=== PATIENT | female | born 2000 | race Caucasian/White ===

== ENCOUNTER 2022-08-13 08:10 | Observation (INO) | payer BC ==
[2022-08-13] MEDS ORDERED: Ondansetron PF 4 MG/2 ML Vial ONE ×2 (08:17→08:21)
[2022-08-13] MEDS ORDERED: Morphine 4 MG/ML VIAL ONE ×2 (08:17→08:21)
[2022-08-13] MEDS ORDERED: Ketorolac Tromethamine 30 MG/ML VIAL ONE ×2 (08:29→09:31)
[2022-08-13 08:30] LABS: #Eosinphils 0.1 10x3/uL (0.0-0.5); #Monocytes 0.5 10x3/uL (0.0-1.1); #Neutrophils 2.8 10x3/uL (1.5-8.4); %Basophils 0.7 % (0.0-2.0); %Eosinophils 1.2 % (0.0-6.0); %Lymphocytes 43.3 % (18.0-47.0); %Monocytes 7.8 % (0.0-10.0); %Neutrophils 46.8 % (40.0-75.0); Hemoglobin 12.1 g/dL (12.0-15.5); Mean Corpuscular HGB CONC 34.4 g/dL (32.0-36.0); Mean Corpuscular Hemoglobin 28.9 pg (27.0-33.0); Mean Platelet Volume 10.3 fl (7.4-10.4); Platelet Count 260 10x3/uL (150-450); RBC Distribution Width 12.6 % (11.5-14.5); Red Blood Cell (RBC) Count 4.19 10x6/uL (3.90-5.03); White Blood Cell (WBC) Count 5.9 10x3/uL (3.5-10.5)
[2022-08-13 08:43] LABS: BHCG - Serum Negative (NEGATIVE); Pregs Control Background? CLEAR/WHITE (CLR/WHITE); Pregs Control Bar Appear? YES (CONTROL BAR)
[2022-08-13 08:50] LABS: ALT (SGPT) 11 U/L (8-55); AST (SGOT) 16 U/L (5-34); Albumin 4.8 g/dL (3.5-5.0); Alkaline Phosphatase 62 U/L (40-110); Anion Gap 17 mmol/L (10-20); BUN (Urea Nitrogen) 9 mg/dL (7.0-18.7); Bilirubin, Total 0.5 mg/dL (0.2-1.2); Calc. Creatinine Clearance 0 mL/min (70-130); Calcium 9.8 mg/dL (7.8-10.44); Carbon Dioxide 18 mmol/L (22-29); Chloride 108 mmol/L (98-107); Estimated GFR 96; Globulin 2.9 g/dL (2.4-3.5); Glucose 120 mg/dL (70-105); Lipase 13 U/L (8-78); Potassium 3.4 mmol/L (3.5-5.1); Protein, Total 7.7 g/dL (6.0-8.3); Sodium 140 mmol/L (136-145)
[2022-08-13] MEDS ORDERED: Fentanyl 100 MCG/2 ML VIAL ONE (09:00)
[2022-08-13 10:51] LABS: Bilirubin Neg (Negative); Blood, Urine 250 (Negative); Clarity Clear (Clear); Glucose, Urine (Dipstick) Normal (Negative); Ketone, Urine 15 mg/dL (Negative); Leukocyte Negative (Negative); Nitrite Negative (Negative); Protein, Urine (Dipstick) 15 mg/dl (Neg-Trace); Specific Gravity, Urine 1.015 (1.005-1.030); Urobilinogen Normal mg/dL (Less than 2)
[2022-08-13 11:09] LABS: Bacteria/HPF Rare-Few HPF (None Seen); RBC/HPF 21-50 HPF (0-3); Squamous Epithelial 0-3 HPF (0-3); WBC/HPF 0-3 HPF (0-3)
[2022-08-13] MEDS ORDERED: Ketamine 50 MG/ML (10ML VIAL) ONE (11:17)
[2022-08-13] MEDS ORDERED: HYDROmorphone 0.5 MG/0.5 ML SYRINGE ONE (12:46)
[2022-08-13] MEDS ORDERED: Ondansetron PF 4 MG/2 ML Vial IVP PRN (14:57)
[2022-08-13] MEDS ORDERED: Senokot S 8.6-50 MG TAB PO PRN (14:57)
[2022-08-13] MEDS: Sodium Chloride 0.9% 1,000 ML IV SCH ×2 (15:40→22:11)
[2022-08-13 15:52] VITALS: BMI 23.5
[2022-08-13] MEDS: HYDROcodone/Acetaminophen 7.5/325 mg Tablet PO PRN ×2 (16:06→22:09)
[2022-08-13] MEDS ORDERED: Potassium Chloride 20 MEQ TAB PO SCH (17:30)
[2022-08-13] MEDS: Acetaminophen 325 MG TAB PO PRN (17:50)
[2022-08-13] MEDS: Famotidine 20 MG TAB PO SCH (20:46)
[2022-08-14] MEDS: Acetaminophen 325 MG TAB PO PRN ×3 (00:15→21:27)
[2022-08-14] MEDS: HYDROcodone/Acetaminophen 7.5/325 mg Tablet PO PRN ×3 (04:27→19:50)
[2022-08-14] MEDS: Sodium Chloride 0.9% 1,000 ML IV SCH (04:47)
[2022-08-14 06:22] LABS: Hemoglobin 9.9 g/dL (12.0-15.5); Mean Corpuscular HGB CONC 33.7 g/dL (32.0-36.0); Mean Corpuscular Hemoglobin 29.5 pg (27.0-33.0); Mean Corpuscular Volume 87.5 fl (81.6-98.3); Mean Platelet Volume 10.6 fl (7.4-10.4); Platelet Count 183 10x3/uL (150-450); RBC Distribution Width 12.8 % (11.5-14.5); Red Blood Cell (RBC) Count 3.36 10x6/uL (3.90-5.03); White Blood Cell (WBC) Count 4.6 10x3/uL (3.5-10.5)
[2022-08-14 06:23] LABS: MDiff Complete? YES
[2022-08-14 06:51] LABS: Anion Gap 10 mmol/L (10-20); BUN (Urea Nitrogen) 4 mg/dL (7.0-18.7); Calc. Creatinine Clearance 145 mL/min (70-130); Calcium 8.1 mg/dL (7.8-10.44); Carbon Dioxide 18 mmol/L (22-29); Chloride 116 mmol/L (98-107); Estimated GFR 128; Glucose 82 mg/dL (70-105); Potassium 3.9 mmol/L (3.5-5.1); Sodium 140 mmol/L (136-145)
[2022-08-14 07:40] LABS: Eosinophils 3 % (0-10); Lymphocytes 56 % (21-51); Monocytes 6 % (0-10); Neutrophil 35 % (42-75)
[2022-08-14 07:43] LABS: Platelet Morphology Comment Appears Adequate; RBC Morphology Normal
[2022-08-14] MEDS: Enoxaparin Sodium 40 MG/0.4 ML SYRINGE SC SCH (09:00)
[2022-08-14] MEDS: Lactated Ringer's 1,000 ML IV SCH (09:46)
[2022-08-14] MEDS: Famotidine 20 MG TAB PO SCH ×2 (09:46→21:18)
[2022-08-14] MEDS ORDERED: Iopamidol 30 ML ONE (14:27)
[2022-08-14] MEDS ORDERED: PROPOFOL 20 ML ONE (14:35)
[2022-08-14] MEDS ORDERED: Midazolam HCl 2 mg/2 ml Vial ONE (14:35)
[2022-08-14] MEDS ORDERED: Ondansetron PF 4 MG/2 ML Vial ONE (14:35)
[2022-08-14] MEDS ORDERED: Fentanyl 100 MCG/2 ML VIAL ONE ×2 (14:35→15:32)
[2022-08-14] MEDS ORDERED: Lidocaine 1% PF 5 ML VIAL ONE (14:36)
[2022-08-14] MEDS ORDERED: Dexamethasone 20 MG/5 ML VIAL ONE (14:36)
[2022-08-14] MEDS ORDERED: Glycopyrrolate 0.2 MG/ML 5 ML SYRINGE ONE (14:36)
[2022-08-14] MEDS ORDERED: Ketorolac Tromethamine 30 MG/ML VIAL ONE (14:36)
[2022-08-14] MEDS ORDERED: B & O ONE (14:52)
[2022-08-14] MEDS ORDERED: Levofloxacin 500 mg/D5W 100 ml Premix Bag ONE (14:53)
[2022-08-14] MEDS: Phenazopyridine HCl 95 MG TAB PO SCH (17:45)
[2022-08-15] MEDS: Lactated Ringer's 1,000 ML IV SCH (00:38)
[2022-08-15] MEDS: HYDROcodone/Acetaminophen 7.5/325 mg Tablet PO PRN ×2 (01:34→09:35)
[2022-08-15] MEDS: Acetaminophen 325 MG TAB PO PRN (05:02)
[2022-08-15] MEDS: Phenazopyridine HCl 95 MG TAB PO SCH (05:02)
[2022-08-15 05:27] LABS: Anion Gap 12 mmol/L (10-20); BUN (Urea Nitrogen) 7 mg/dL (7.0-18.7); Calc. Creatinine Clearance 145 mL/min (70-130); Calcium 8.5 mg/dL (7.8-10.44); Carbon Dioxide 19 mmol/L (22-29); Chloride 110 mmol/L (98-107); Estimated GFR 128; Glucose 100 mg/dL (70-105); Potassium 4.1 mmol/L (3.5-5.1); Sodium 137 mmol/L (136-145)
[2022-08-15 05:59] LABS: Hemoglobin 10.7 g/dL (12.0-15.5); Mean Corpuscular HGB CONC 33.6 g/dL (32.0-36.0); Mean Corpuscular Volume 86.2 fl (81.6-98.3); Mean Platelet Volume 10.8 fl (7.4-10.4); Platelet Count 194 10x3/uL (150-450); RBC Distribution Width 12.4 % (11.5-14.5); Red Blood Cell (RBC) Count 3.69 10x6/uL (3.90-5.03)
[2022-08-15] MEDS ORDERED: Trospium 20 MG TAB PO SCH (09:00)
[2022-08-15] MEDS: Famotidine 20 MG TAB PO SCH (09:38)
[2022-08-15] MEDS: Enoxaparin Sodium 40 MG/0.4 ML SYRINGE SC SCH (09:44)
[2022-08-15 11:40] VITALS: BP 112/63; TEMP 98.1
[2022-08-16] MEDS ORDERED: FLU VACC QS2022-23(6MOS UP)/PF 60 MCG/0.5 ML SYRINGE IM ONE (16:45)
== END 2022-08-15 10:20 | disposition home or self-care (01) ==
LOC: CSHERS 08:10 → CSHTELE 15:19
PROVIDERS: ADMIT Internal Medicine Geriatric Medicine; ATTEND Internal Medicine
PROC: 0T768DZ Dilation of Right Ureter with Intraluminal Device, Via Natural or Artificial Opening Endoscopic (ICD-10-PCS; principal; 2022-08-14)
DX: N13.2 Hydronephrosis with renal and ureteral calculous obstruction (principal); N35.92 Unspecified urethral stricture, female; E87.6 Hypokalemia; E87.20 Acidosis, unspecified; N83.202 Unspecified ovarian cyst, left side; Z79.899 Other long term (current) drug therapy; Z20.822 Contact with and (suspected) exposure to COVID-19; Z98.890 Other specified postprocedural states
CPT/HCPCS: 36415; 74176; 76856; 80048; 80053; 81003; 81015; 83690; 84703; 85025; 85027; 87086; 87205; 93005; 96374; 96375; 96376; C2617; G0378; J1100; J1170; J1885; J1956; J2250; J2270; J2405; J2704; J3010; J7050; J7120; Q9967; U0003; U0005